=== PATIENT | male | born 1960 | race Caucasian/White ===

== ENCOUNTER 2017-10-25 06:05 | Emergency (ER) | payer BC, OTHER ==
[~2017-10-25] VITALS: Ht 188 cm; Wt 93.0 kg
[2017-10-25 06:17] VITALS: BP 116/90
[2017-10-25] MEDS ORDERED: FLUORESCEIN SODIUM OPHTH 1 EA STRIP ONE (06:24)
[2017-10-25] MEDS ORDERED: TETRACAINE HCL/PF 0.5% UD 2 ML BOTTLE ONE (06:24)
[2017-10-25] MEDS ORDERED: FLUORESCEIN SODIUM OPHTH 1 EA STRIP OP ONE (06:30)
[2017-10-25] MEDS ORDERED: TETRAcaine 5 ML BOTTLE EACHEYE ONE (06:30)
== END 2017-10-25 06:55 | disposition home or self-care (01) ==
LOC: ER 06:09
DX: S05.02XA Injury of conjunctiva and corneal abrasion without foreign body, left eye, initial encounter (principal); I48.91 Unspecified atrial fibrillation; Z88.0 Allergy status to penicillin; Z88.1 Allergy status to other antibiotic agents; W22.8XXA Striking against or struck by other objects, initial encounter; Y93.89 Activity, other specified; Y92.89 Other specified places as the place of occurrence of the external cause; Y99.8 Other external cause status
CPT/HCPCS: 99284; A4606; Z7610